=== PATIENT | male | born 1965 | race Caucasian/White ===

== ENCOUNTER 2020-09-15 05:08 | Observation (INO) | payer OTHER ==
[~2020-09-15] VITALS: Ht 175.3 cm; Wt 75.3 kg
--- NOTE | 2020-09-15 05:15 | NUR ---
EKG IN TRIAGE
--- NOTE | 2020-09-15 05:28 | NUR ---
PT AMBULATED TO ROOM, C/O CHEST PAIN. EKG DONE AND MD SIGNED OFF ON IT. PT PLACED ON CR MONITOR, AND INTO GOWN.
--- NOTE | 2020-09-15 05:50 | NUR ---
PT O2 SATS AT 88% ON ROOM AIR, AND PT RESTING IN ROOM, NO ACTIVITY. PT PLACED ON O2 NC 2 LPM, AND O2 SATS INCREASED TO 97%.
[2020-09-15] MEDS ORDERED: MORPHINE SULFATE 4 MG/ML, 1ML IVPush PRN (06:30)
[2020-09-15] MEDS ORDERED: ASPIRIN 81 MG TABLET CHEW PO ONE (06:30)
[2020-09-15] MEDS ORDERED: SODIUM CHLORIDE FLUSH 10ML SYR IVF ONE (06:30)
[2020-09-15] MEDS ORDERED: MORPHINE SULFATE 4 MG/ML, 1ML ONE (07:03)
[2020-09-15] MEDS ORDERED: ASPIRIN 81 MG TABLET CHEW ONE (07:03)
--- NOTE | 2020-09-15 07:13 | NUR ---
PT SITTING UP IN BED, RESPIRATIONS EVEN AND UNLABORED ON NC. PT APPEARS TIRED, REPORTS CP FOR "HOURS" AND THAT HE BELIEVED IT WOULD SUBSIDE. PT DENIES CARDIAC HX. SIDE RAILS UP, CALL LIGHT IN REACH. IV STARTED, LABS DRAWN AND SENT.
[2020-09-15 07:18] LABS: BASOPHILS % (AUTO) 0 % (0-1); EOSINOPHILS % (AUTO) 1 % (1-7); LYMPHOCYTES % (AUTO) 21 % (22-44); MEAN CORPUSCULAR HEMOGLOBIN 33.7 pg (27.5-34.5); MEAN PLATELET VOLUME 7.7 fL (7.4-10.4); MONOCYTES % (AUTO) 6 % (2-9); NEUTROPHILS % (AUTO) 71 % (42-75); PLATELET COUNT 253 x10^3/uL (130-400); RED BLOOD COUNT 4.63 x10^6/uL (4.38-5.82); RED CELL DISTRIBUTION WIDTH 13.6 % (9.4-14.8)
[2020-09-15 07:29] LABS: ALANINE AMINOTRANSFERASE 16 U/L (12-78); ALBUMIN 3.3 g/dL (3.4-5.0); ANION GAP 6 mmol/L (5-15); CALCIUM 8.5 mg/dL (8.5-10.1); CHLORIDE 106 mmol/L (98-107)
[2020-09-15 07:32] LABS: ALKALINE PHOSPHATASE 79 U/L (45-117); BILIRUBIN,TOTAL 0.2 mg/dL (0.2-1.0); TOTAL PROTEIN 6.7 g/dL (6.4-8.2); TROPONIN I < 0.015 ng/mL (0.000-0.045)
--- NOTE | 2020-09-15 07:32 | NUR ---
RN ENTERED ROOM FOR RECHECK. PT ASLEEP, EASILY AWOKEN TO VOICE. RN ASKED IF PT'S PAIN LEVEL HAD DECREASED ANYMORE, "WELL I WAS SLEEPING AND IT FELT GOOD." LIGHTS DIMMED FOR PT COMFORT. DOOR CLOSED. SIDE RAILS UP, CALL LIGHT IN REACH.
--- NOTE | 2020-09-15 08:10 | NUR ---
PT ASLEEP IN BED, RESPIRATIONS EVEN AND UNLABORED ON NC. BLANKET IN PLACE, SIDE RAILS UP, CALL LIGHT IN REACH. NAD NOTED AT THIS TIME.
--- NOTE | 2020-09-15 09:34 | NUR ---
PT ASLEEP IN BED, NAD NOTED AT THIS TIME. RESPIRATIONS EVEN AND UNLABORED ON NC. REMAINS AT BEDSIDE. SIDE RAILS UP, CALL LIGHT IN REACH. PLAN FOR ADMISSION.
--- NOTE | 2020-09-15 10:25 | NUR ---
DR COLLINS AT BEDSIDE FOR ADMISSION ASSESSMENT. NAD NOTED IN PT AT THIS TIME. RESPIRATIONS EVEN AND UNLABORED ON NC. SIDE RAILS UP, CALL LIGHT IN REACH.
--- NOTE | 2020-09-15 10:48 | NUR ---
awaiting med from pharmacy
--- NOTE | 2020-09-15 10:54 | NUR ---
pt taken to ct
[2020-09-15] MEDS: ENOXAPARIN 40 MG/0.4 ML SQ SCH (11:00)
[2020-09-15] MEDS ORDERED: ONDANSETRON 2MG/ML, 2ML IVPush PRN (11:00)
[2020-09-15] MEDS ORDERED: ACETAMINOPHEN 325 MG TABLET PO PRN (11:00)
[2020-09-15] MEDS ORDERED: THIAMINE 200 MG in SODIUM CHLORIDE 0.9% 50 ML IV ONE (11:00)
[2020-09-15] MEDS ORDERED: OXYcodone IR 5MG TABLET PO PRN (11:00)
[2020-09-15] MEDS ORDERED: hydrALAzine 20 MG/ML, 1ML IVPush PRN (11:00)
[2020-09-15] MEDS ORDERED: MELATONIN 5 MG TABLET PO PRN (11:00)
[2020-09-15] MEDS ORDERED: KETOROLAC 30 MG/1 ML IV PRN (11:00)
--- NOTE | 2020-09-15 11:05 | NUR ---
PT RETURNED FROM CT. NAD NOTED AT THIS TIME. AT BEDSIDE.
--- NOTE | 2020-09-15 11:07 | NUR ---
FIRST ATTEMPT TO CALL REPORT.
[2020-09-15] MEDS ORDERED: OMNIPAQUE 350 MG/ML, 75ML BOTTLE ONE (11:13)
--- NOTE | 2020-09-15 11:22 | NUR ---
SECOND ATTEMPT TO CALL REPORT.
--- NOTE | 2020-09-15 11:29 | NUR ---
REPORT GIVEN TO LUIS MCNEILL. PER [facility] "THE ROOM ISN'T READY" ED TO AWAIT FURTHER INSTRUCTIONS FOR TRANSPORT TIME.
[2020-09-15] MEDS ORDERED: ENOXAPARIN 40 MG/0.4 ML ONE (11:34)
[2020-09-15] MEDS ORDERED: DIAZEPAM 5 MG TABLET ONE (11:34)
[2020-09-15] MEDS: DIAZEPAM 5 MG TABLET PO SCH ×3 (11:37→23:00)
[2020-09-15 12:04] LABS: TROPONIN I < 0.015 ng/mL (0.000-0.045)
--- NOTE | 2020-09-15 12:24 | NUR ---
CALL TO TELE TO CHECK ON ROOM READINESS. PER [employer], ROOM IS CLEAN AND READY FOR PT. NAD NOTED IN PT AT THIS TIME. MED ARRIVED FROM PHARMACY AFTER RN CALLED FOR UPDATE.
[2020-09-15 12:52] VITALS: BP 125/83
[2020-09-15 12:57] VITALS: BP 125/83
[2020-09-15 17:03] LABS: TROPONIN I < 0.015 ng/mL (0.000-0.045)
[2020-09-15 20:32] VITALS: BP 115/77
[2020-09-15] MEDS ORDERED: ATORVASTATIN 40 MG TABLET PO SCH (21:00)
[2020-09-16 00:02] VITALS: BP_SYST 138; BP_SYST 147; BP_DIAS 85; BP_DIAS 91
[2020-09-16] MEDS: DIAZEPAM 5 MG TABLET PO SCH ×2 (05:32→11:09)
[2020-09-16] MEDS ORDERED: ASPIRIN 81 MG TABLET EC PO SCH (06:00)
[2020-09-16 06:15] LABS: BASOPHILS % (AUTO) 0 % (0-1); EOSINOPHILS % (AUTO) 2 % (1-7); LYMPHOCYTES % (AUTO) 36 % (22-44); MEAN CORPUSCULAR HEMOGLOBIN 33.5 pg (27.5-34.5); MEAN CORPUSCULAR HGB CONC 33.8 g/dL (33.2-36.2); MEAN PLATELET VOLUME 8.5 fL (7.4-10.4); MONOCYTES % (AUTO) 9 % (2-9); NEUTROPHILS % (AUTO) 53 % (42-75); PLATELET COUNT 217 x10^3/uL (130-400); RED BLOOD COUNT 4.38 x10^6/uL (4.38-5.82); RED CELL DISTRIBUTION WIDTH 13.7 % (9.4-14.8)
[2020-09-16 06:24] LABS: ANION GAP 3 mmol/L (5-15); CALCIUM 8.4 mg/dL (8.5-10.1); CHLORIDE 106 mmol/L (98-107)
[2020-09-16 06:28] LABS: CHOL/HDL RATIO 3.1; CHOLESTEROL, TOTAL 157 mg/dL (140-239); CREATININE 0.72 mg/dL (0.7-1.3); HDL CHOL % 32 % (26-37); HDL CHOLESTEROL (DIRECT) 50 mg/dL (40-60); LDL CHOLESTEROL,CALCULATED 77 mg/dL (54-169); LDL/HDL RATIO 1.5 (0.5-3.0); TRIGLYCERIDES 152 mg/dL (50-200); VLDL CHOLESTEROL 30 mg/dL (0-25)
[2020-09-16 07:12] VITALS: BP 139/89
[2020-09-16] MEDS ORDERED: PANTOPRAZOLE 40MG TABLET PO SCH (07:30)
[2020-09-16] MEDS: ENOXAPARIN 40 MG/0.4 ML SQ SCH (11:00)
[2020-09-16 12:29] VITALS: BP 166/77
== END 2020-09-16 14:58 | disposition home or self-care (01) ==
LOC: ED 06:38 → EDIP 10:01 → INTOOBSV 10:01 → 5SO 12:29
PROVIDERS: ADMIT Hospitalist; ATTEND Hospitalist
DX: R07.89 Other chest pain (principal); D72.829 Elevated white blood cell count, unspecified; I10 Essential (primary) hypertension; G89.29 Other chronic pain; M54.2 Cervicalgia; F10.10 Alcohol abuse, uncomplicated; F17.200 Nicotine dependence, unspecified, uncomplicated; F12.90 Cannabis use, unspecified, uncomplicated; Z88.0 Allergy status to penicillin; Z79.899 Other long term (current) drug therapy
CPT/HCPCS: 36415; 71045; 71275; 80048; 80053; 80061; 84484; 85025; 85379; 93005; 93017; 93306; 93356; 96365; 96372; 99285; G0378; J2270; J3411; Q9967